=== PATIENT | female | born 1955 | race Caucasian/White ===

== ENCOUNTER → 2018-02-17 | Outpatient (CLI) | payer OTHER | LOC: RAD 11:18 | DX: I10 Essential (primary) hypertension (principal); M47.814 Spondylosis without myelopathy or radiculopathy, thoracic region ==

== ENCOUNTER → 2020-02-24 | Outpatient (CLI) | payer OTHER | LOC: HYPER 14:36 | PROVIDERS: ATTEND Emergency Medicine | DX: I89.0 Lymphedema, not elsewhere classified (principal); R21 Rash and other nonspecific skin eruption; L30.9 Dermatitis, unspecified; E66.01 Morbid (severe) obesity due to excess calories; E78.00 Pure hypercholesterolemia, unspecified; I10 Essential (primary) hypertension; I48.91 Unspecified atrial fibrillation; I25.2 Old myocardial infarction; R53.83 Other fatigue; R60.0 Localized edema; M35.3 Polymyalgia rheumatica; M19.91 Primary osteoarthritis, unspecified site; M25.549 Pain in joints of unspecified hand; F32.9 Major depressive disorder, single episode, unspecified; Z68.42 Body mass index [BMI] 45.0-49.9, adult; Z79.01 Long term (current) use of anticoagulants; Z79.82 Long term (current) use of aspirin ==

== ENCOUNTER → 2020-03-16 | Outpatient (CLI) | payer OTHER | LOC: HYPER 14:12 | PROVIDERS: ATTEND Emergency Medicine | DX: I89.0 Lymphedema, not elsewhere classified (principal); M35.3 Polymyalgia rheumatica; R53.83 Other fatigue; R21 Rash and other nonspecific skin eruption; L30.9 Dermatitis, unspecified; R60.0 Localized edema; M19.91 Primary osteoarthritis, unspecified site; M25.549 Pain in joints of unspecified hand; I48.91 Unspecified atrial fibrillation; E78.00 Pure hypercholesterolemia, unspecified; I25.2 Old myocardial infarction; Z79.01 Long term (current) use of anticoagulants; Z79.82 Long term (current) use of aspirin ==

== ENCOUNTER → 2020-09-11 | Outpatient (CLI) | payer OTHER | LOC: RAD 14:02 | PROVIDERS: ATTEND Nurse Practitioner | DX: R06.02 Shortness of breath (principal) ==